=== PATIENT | female | born 1985 | race African-American/Black ===

== ENCOUNTER → 2021-01-26 | Outpatient (CLI) | payer MEDICARE ==
[~2021-01-26] MED LIST: MULTIVITAMINS1 EAC1 PO; OMEPRAZOLE40 MG PO; PROBIOTIC1 EAC1 PO
== END ==
LOC: EROP 13:35
DX: Z20.822 Contact with and (suspected) exposure to COVID-19 (principal)
CPT/HCPCS: U0002